=== PATIENT | female | born 1970 | race Caucasian/White ===

== ENCOUNTER 2018-10-16 10:49 | Day surgery (SDC) | payer OTHER ==
[2018-10-16] MEDS ORDERED: Ringers Lactate 1,000 ML IV ONE (11:03)
[2018-10-16] MEDS ORDERED: NA CHLORIDE 0.9% 1,000 ML ONE (11:26)
[2018-10-16] MEDS ORDERED: LIDOCAINE 1% W/EPI 1:100,000 MDV 50 ML VIAL ONE (11:26)
[2018-10-16] MEDS ORDERED: FENTANYL CITR 100 MCG/2 ML ONE (11:37)
[2018-10-16] MEDS ORDERED: PROPOFOL 200 MG/20 ML VIAL IV ONE (11:37)
[2018-10-16] MEDS ORDERED: MIDAZOLAM HCL 2 MG/2 ML INJ ONE (11:38)
[2018-10-16] MEDS ORDERED: LIDOCAINE 2% MPF 5 ML VIAL ONE (11:38)
[2018-10-16] MEDS ORDERED: KETOROLAC 30 MG/ML INJ ONE (12:32)
[2018-10-16] MEDS ORDERED: IBUPROFEN 200 MG TAB PO ONE (13:19)
--- NOTE | 2018-10-16 23:14 | OP ---
Date of Procedure: 10/16/2018 Surgeon: Keyona Yeager MD Preoperative Diagnosis: Menorrhagia. Postoperative Diagnosis: Menorrhagia. Procedures Performed: Hysteroscopy, dilation and curettage. Anesthesia: MAC converted to general. Specimens: Endometrial curettings. Complications: No complications. Drains: No drains. Condition: Stable. Findings: Uterine cavity thickened. No intracavitary lesions were seen. The patient had to be conv erted to general because she could not tolerate the MAC. Description Of Procedure: After informed consent was verified, she was taken back to the OR, placed in a supine fashion on the operating table. After MAC was given, she was placed in a dorsal lithotom y position. We could not get the patient to quite settle down and so will not start the procedure, h owever, injected the anterior lip with 1% lidocaine mixed with 1: 100,000 epinephrine. Still the pat ient was not comfortable and moving and so the case was paused, anesthesia converted to general and t hen restarted the procedure. Prep x3 with Betadine was done. Anterior lip grasped with 2 Allis clam ps and direct hysteroscopy with a SlimLine hysteroscope and 30-degree lens normal saline was done. T raversed the cervical canal under direct vision, entered the uterine cavity. The cavity was empty, t hickened endometrium. Both tubal ostia were visualized. The scope removed. Curettings performed. There was adequate sampling. All instruments were removed. Instrument, needle, and sponge counts we re done and were correct at the end of the case. A 30 mg of Toradol was given before the patient was woken up. She was recovered from anesthesia in the OR and taken to the PACU in stable condition. S he will follow up with me in 1 week for results. RADHAMES/LYNN Voice ID: [id number] Report ID: [id number]
== END 2018-10-16 13:30 | disposition home or self-care (01) ==
LOC: OR 10:49
PROVIDERS: ATTEND Obstetrics & Gynecology
PROC: 0UJD8ZZ Inspection of Uterus and Cervix, Via Natural or Artificial Opening Endoscopic (ICD-10-PCS; 2018-10-16)
PROC: 0UDB7ZX Extraction of Endometrium, Via Natural or Artificial Opening, Diagnostic (ICD-10-PCS; principal; 2018-10-16 11:00)
DX: N92.1 Excessive and frequent menstruation with irregular cycle (principal); F17.210 Nicotine dependence, cigarettes, uncomplicated; Z80.3 Family history of malignant neoplasm of breast; Z80.8 Family history of malignant neoplasm of other organs or systems
CPT/HCPCS: 81025; 88305; J2250; J2704; J3010; J7030

== ENCOUNTER 2019-02-17 07:05 | Day surgery (SDC) | payer OTHER ==
[~2019-02-17 07:05] MED LIST: CEFAZOLIN 3 GM in NA CHLORIDE 0.9% 100 ML IM SCH
[2019-02-17] MEDS ORDERED: Ringers Lactate 1,000 ML IV ONE (07:34)
[2019-02-17] MEDS ORDERED: CEFAZOLIN/SWI 2gm 2 GM/20 ML SYR ONE (07:35)
[2019-02-17] MEDS ORDERED: CEFAZOLIN/SWI 1gm 1 GM/10 ML SYR ONE (07:35)
[2019-02-17] MEDS ORDERED: PROPOFOL 200 MG/20 ML VIAL IV ONE (07:44)
[2019-02-17] MEDS ORDERED: FENTANYL CITR 100 MCG/2 ML ONE (07:45)
[2019-02-17] MEDS ORDERED: ONDANSETRON 4 MG/2 ML VIAL ONE (07:46)
[2019-02-17] MEDS ORDERED: LIDOCAINE 2% MPF 5 ML VIAL ONE (07:46)
[2019-02-17] MEDS ORDERED: MIDAZOLAM HCL 2 MG/2 ML INJ ONE (07:47)
[2019-02-17] MEDS ORDERED: NA CHLORIDE 0.9% 0 ML ONE (08:20)
[2019-02-17] MEDS ORDERED: VASOPRESSIN 20 UNIT/ML VIAL ONE (08:20)
[2019-02-17] MEDS ORDERED: KETOROLAC 30 MG/ML INJ ONE (09:08)
[2019-02-17] MEDS: MEPERIDINE HCL 50 MG/ML AMP ONE ×2 (09:25→09:36)
[2019-02-17] MEDS ORDERED: HYDROCODONE/APAP 5/325 MG TAB ONE (10:26)
--- NOTE | 2019-02-17 18:56 | OP ---
Date of Procedure: 02/17/2019 Surgeon: Keyona Yeager MD Preoperative Diagnosis: Menorrhagia. Postoperative Diagnosis: Menorrhagia. Procedures Performed: Hysteroscopy, endometrial ablation with HTA. Anesthesia: General with LMA. Specimens: None. Complications: None. Drains: None. Condition: Stable. Findings: Uterine cavity empty. Excellent ablation effect. Cavity rinsed with normal saline at the end of the ablation. Indications: The patient is a 48-year-old with menorrhagia, endometrial sampling without atypia or m alignancy. The patient is perimenopausal. Mirena IUD versus ablation were discussed with the patien t. The patient preferred to have an ablation. Procedure In Detail: She was brought to the OR. Three grams of Ancef were given. The patient was t aken back to OR placed in supine fashion on the operating table. General anesthesia given with endot papito tube intubation. The patient was placed in a dorsal lithotomy position using Mikey stirrups. Pelvic exam performed. Uterus anteflexed. Prep x3 with Betadine was done with the cervix, vagina, and vulva. Speculum placed to expose the cervix. Anterior lip grasped with 2 Allis clamps. HTA sh eath was primed and hysteroscopy was performed directly through the cervical canal without prior dila tation. After the cavity was well visualized, the tip of the scope was placed in the central part of the endometrial canal. The sheath was hooked onto the Allis clamps. Two Ray-Tecs were placed in th e posterior fornix with the speculum in place. Cavity integrity test was done, and there was no leak . Progressed to the ablation. The heating cycle, the 10 minute ablation cycle, and 1.5 minute cooli ng cycle were conducted without any interruptions. Then, diagnostic hysteroscopy was performed to vi sualize the cavity after rinsing it with the normal saline. There was excellent ablation effect glob ally. The scope was removed Ray-Tecs were removed. Instrument, needle, and sponge counts were done after they were all removed and were correct. The patient tolerated the procedure well, recovered fr om anesthesia in the OR, and taken to the PACU in stable condition. IV Toradol 30 mg was given prior to recovering her. She will follow up with me in 2 weeks. RADHAMES/LYNN Voice ID: [id number] Report ID: [id number]
== END 2019-02-17 10:55 | disposition home or self-care (01) ==
LOC: OR 07:05
PROVIDERS: ATTEND Obstetrics & Gynecology
PROC: 0U5B8ZZ Destruction of Endometrium, Via Natural or Artificial Opening Endoscopic (ICD-10-PCS; principal; 2019-02-17 08:30)
DX: N92.1 Excessive and frequent menstruation with irregular cycle (principal); N94.6 Dysmenorrhea, unspecified; F17.200 Nicotine dependence, unspecified, uncomplicated; E66.9 Obesity, unspecified; Z68.41 Body mass index [BMI] 40.0-44.9, adult; Z79.899 Other long term (current) drug therapy
CPT/HCPCS: 81025; J0690; J2175; J2250; J2405; J2704; J3010